=== PATIENT | female | born 1960 | race Caucasian/White ===

== ENCOUNTER → 2018-02-01 09:03 | Outpatient (CLI) | payer BC ==
[2018-02-01 10:16] LABS: BASOPHILS 0.2 % (0-2); EOSINOPHILS 1.4 % (0-7); HEMATOCRIT 35.2 % (36.0-48.0); HEMOGLOBIN 12.2 g/dL (12-16); IMMATURE GRANULOCYTES 0.2 % (0-5); LYMPHOCYTES 26.8 % (15-50); MCH 36.3 pg (26.0-34.0); MCHC 34.7 g/dL (31.0-37.0); MCV 104.8 fL (80.0-100.0); MEAN PLATELET VOLUME 9.9 fL (7.4-10.4); MONOCYTES 8.1 % (2-11); NEUTROPHILS 63.3 % (40-80); PLATELET COUNT 251 10x3/uL (130-400); RBC 3.36 10x6/uL (4.00-5.40); RDW 17.2 % (11.5-14.5); WBC 4.3 10x3/uL (4.8-10.8)
[2018-02-01 10:24] LABS: INR 0.98 (0.85-1.17); PROTIME 12.6 SECONDS (11.6-15.0)
[2018-02-01 10:29] LABS: BILIRUBIN - DIRECT 0.33 mg/dL (0.00-0.30); BILIRUBIN - INDIRECT 0.67 mg/dL (0.00-1.00); PROTEIN - SERUM 6.3 g/dL (6.4-8.2)
[2018-02-02 08:22] LABS: HEPATITIS C ANTIBODY <0.1 (0.0-0.9)
== END | disposition home or self-care (01) ==
LOC: D.LAB 09:03 → D.US 10:00
PROVIDERS: Internal Medicine Gastroenterology
DX: R10.9 Unspecified abdominal pain (principal); R11.0 Nausea; R74.8 Abnormal levels of other serum enzymes

== ENCOUNTER → 2018-02-18 14:59 | Outpatient (CLI) | payer BC | END | disposition home or self-care (01) | LOC: D.CT 14:59 | DX: R56.9 Unspecified convulsions (principal) ==

== ENCOUNTER → 2019-09-26 13:23 | Outpatient (CLI) | payer BC | END | disposition home or self-care (01) | LOC: D.US 13:23 | PROVIDERS: ATTEND Specialist | DX: M79.605 Pain in left leg (principal) ==

== ENCOUNTER 2021-05-08 12:46 | Inpatient (IN) | payer BC ==
[~2021-05-08] VITALS: Ht 157.5 cm; Wt 90.7 kg
--- NOTE | 2021-05-08 13:00 | NUR ---
RECIEVED TO ROOM 1119I.ORIENTED TO SURROUNDINGS.CL IN REACH.
[2021-05-08] MEDS ORDERED: VENTOLIN HFA [SP8 GM INH (17:18)
[2021-05-08] MEDS ORDERED: VITAMIN B-121000 MCG PO (17:18)
[2021-05-08] MEDS ORDERED: FUROSEMIDE20 MG PO (17:19)
[2021-05-08] MEDS ORDERED: NEURONTIN 300300 MG PO (17:21)
[2021-05-08] MEDS ORDERED: HYDRALAZINE HCL25 MG PO (17:22)
[2021-05-08] MEDS ORDERED: VISTARIL25 MG PO (17:23)
[2021-05-08] MEDS ORDERED: KEPPRA500 MG PO (17:24)
[2021-05-08] MEDS ORDERED: COZAAR100 MG PO (17:24)
[2021-05-08] MEDS ORDERED: MULTIGEN FOLIC1 EACH PO (17:25)
[2021-05-08] MEDS ORDERED: VITAMIN B-1100 M1 PO (17:25)
--- NOTE | 2021-05-08 19:58 | NUR ---
AWAKE AND ALERT. RESTING IN BED WITH RESPIRATIONS UNLABORED. USES CANE FOR AMBULATION. NO DISTRESS NOTED. CALL LIGHT IN REACH.
[2021-05-08 20:18] VITALS: BP 125/90
[2021-05-08 22:43] VITALS: BP 125/90; BMI 36.6
--- NOTE | 2021-05-09 05:04 | NUR ---
QUIET HOURS. RESTING IN BED WITH RESPIRATIONS UNLABORED. NO ACUTE CHANGES IN CONDITION THIS SHIFT. RESTING IN BED WITH NO DISTRESS NOTED. CALL LIGHT IN REACH.
[2021-05-09 06:32] LABS: CALC OSMOLALITY 280 mosm/kg (275-300); CALCIUM 8.7 mg/dL (8.5-10.1); CARBON DIOXIDE 31.8 mmol/L (21.0-32.0); CHLORIDE - SERUM 104 mmol/L (98-107); CREATININE - SERUM 0.7 mg/dL (0.6-1.3); GLUCOSE 103 mg/dL (74-106); POTASSIUM - SERUM 4.2 mmol/L (3.5-5.1); SODIUM 140 mmol/L (136-145); UREA NITROGEN 19 mg/dL (7-18); eGFR NON AFRICAN AMERICAN 90 mL/min (90-120)
[2021-05-09 06:35] LABS: HEMATOCRIT 29.2 % (36.0-48.0); HEMOGLOBIN 9.8 g/dL (12-16); MCH 36.8 pg (26.0-34.0); MCHC 33.6 g/dL (31.0-37.0); MCV 109.7 fL (80.0-100.0); MEAN PLATELET VOLUME 7.7 fL (7.4-10.4); RBC 2.66 10x6/uL (4.00-5.40); RDW 20.4 % (11.5-14.5); WBC 2.1 10x3/uL (4.8-10.8)
[2021-05-09 06:45] LABS: PLATELET COUNT 177 10x3/uL (130-400)
[2021-05-09 08:02] VITALS: BP 138/118
[2021-05-09 09:43] LABS: ANISOCYTOSIS OCC; EOSINOPHILS 4 % (0-7); LYMPHOCYTES 38 % (15-50); MONOCYTES 8 % (2-11); NEUTROPHILS 48 % (40-80); PLATELET ESTIMATE NORMAL
--- NOTE | 2021-05-09 13:52 | NUR ---
RESTING QUIETLY IN BED. HAS BEEN UP IN ROOM MOVING AROUND USING HER CANE. DENIES INCREASED PAIN. STILL HAS SOME BRUISING FROM FALLS. ON RT SIDE OF FORHEAD IS A HEALING BRUISE. CALL LIGHT IN REACH
[2021-05-09 14:32] VITALS: Ht 157.5 cm; Wt 90.7 kg
--- NOTE | 2021-05-09 19:00 | NUR ---
RECEIVED SHIFT REPORT FROM MARY SOLORZANO RN, INFORMED PT THAT I WILL BE BACK SHORTLY, PT VERBALIZES UNDERSTANDING, DENIES NEEDS AT THIS TIME
--- NOTE | 2021-05-09 20:35 | NUR ---
PT AWAKE, PT REQUESTS TYLENOL IF DUE, INFORMED PT THAT I WILL CHECK ON IT AND BRING IT IN WITH 9PM MEDS, PT VERBALIZES UNDERSTANDING, DENIES FURTHER NEEDS
--- NOTE | 2021-05-09 21:59 | NUR ---
ASSESSMENT PER FLOW SHEET, VS OBTAINED PER MACHINE HEEL SEAT FITTER, PT REPORTS FLATUS, BM TODAY AND VOIDING WITH NO DIFFICULTY, INFORMED PT THAT I WILL BRING IN TYLENOL AROUND 10:30 PM, PT VERBALIZES UNDERSTANDING, DENIES FURTHER NEEDS
[2021-05-09 22:08] VITALS: BP 110/90
--- NOTE | 2021-05-09 22:30 | NUR ---
ADM TYLENOL PER MD ORDERS, SEE EMAR, PT REQUESTED AND SERVED SNACK, DENIES FURTHER NEEDS
--- NOTE | 2021-05-09 23:10 | NUR ---
PT CABIN SERVICE AGENT LIGHT, PT C/O "BEING ITCHY", ADM VISTARIL PER MD ORDERS, SEE EMAR, PT STATES "I TAKE THAT AT HOME, THAT IS WHAT MY DOCTOR USUALLY PRESCIBES", PT DENIES FURTHER NEEDS
--- NOTE | 2021-05-10 | NUR ---
PT RESTING WITH EYES CLOSED, RESP QUIET, NO DISTRESS NOTED, LEFT UNDISTURBED AT THIS TIME, BED IN LOW POSITION, SIDE RAILS X 2, CALL LIGHT IN REACH
[2021-05-10 05:37] VITALS: BP 120/96
--- NOTE | 2021-05-10 05:37 | NUR ---
PT RESTING WITH EYES CLOSED, AROUSES TO SOFT VERBAL STIMULATION, OBTAINED BP, ADM 0600 MEDS PER MD ORDERS, SEE EMAR, PT REQUESTED AND SERVED DIET LEMON [place] & [place] AND VLAD CRACKERS, DENIES FURTHER NEEDS, BED IN LOW POSITION SIDE RAILS X 2, CALL LIGHT IN REACH
[2021-05-10 07:12] LABS: BASOPHILS 0.5 % (0-2); EOSINOPHILS 1.5 % (0-7); HEMATOCRIT 26.8 % (36.0-48.0); HEMOGLOBIN 9.1 g/dL (12-16); LYMPHOCYTES 43.7 % (15-50); MCH 36.5 pg (26.0-34.0); MCHC 34.1 g/dL (31.0-37.0); MEAN PLATELET VOLUME 7.5 fL (7.4-10.4); MONOCYTES 18.6 % (2-11); NEUTROPHILS 35.7 % (40-80); PLATELET COUNT 194 10x3/uL (130-400); RDW 19.9 % (11.5-14.5); WBC 2.3 10x3/uL (4.8-10.8)
[2021-05-10 07:18] LABS: CALC OSMOLALITY 279 mosm/kg (275-300); CALCIUM 8.8 mg/dL (8.5-10.1); CARBON DIOXIDE 28.5 mmol/L (21.0-32.0); CHLORIDE - SERUM 105 mmol/L (98-107); CREATININE - SERUM 0.8 mg/dL (0.6-1.3); GLUCOSE 93 mg/dL (74-106); SODIUM 139 mmol/L (136-145); UREA NITROGEN 19 mg/dL (7-18); eGFR NON AFRICAN AMERICAN 77 mL/min (90-120)
[2021-05-10 07:29] LABS: MCV 106.9 fL (80.0-100.0)
[2021-05-10 08:28] VITALS: BP 99/72
--- NOTE | 2021-05-10 15:08 | NUR ---
RESTING QUIETLY IN BED. STILL HAS A POOR APPETITE AND C/O SOB AT TIMES. WEARS OXYGEN 3LNC. DENIES PAIN. IS WEAK AND TIRES EASILY. CALL LIGHT IN REACH
--- NOTE | 2021-05-10 19:44 | NUR ---
PATIENT ALERT/ORIENT. PRN ZOFRAN GIVEN PER PATIENT REQUEST FOR NAUSEA. PATIENT SITTING UP ON THE SIDE OF HER BED. CALL LIGHT WITH REACH. VOICES NO NEEDS AT THIS TIME. WILL CONTINUE WITH PLAN OF CARE
[2021-05-10 22:07] VITALS: BP 104/60
--- NOTE | 2021-05-10 22:59 | NUR ---
PATIENT LYING IN BED WITH EYES CLOSED. T.V. ON. RESPIRATIONS EASY. CALL LIGHT WITHIN REACH
--- NOTE | 2021-05-11 02:12 | NUR ---
SITTING UP IN BED WITH EYES CLOSED. CALL LIGHT WITHIN REACH
--- NOTE | 2021-05-11 06:21 | NUR ---
BP 175/55.
[2021-05-11 07:00] VITALS: BP 179/120
--- NOTE | 2021-05-11 08:00 | NUR ---
PLEASANT.SHIFT ASSMT COMPLETED.
--- NOTE | 2021-05-11 16:00 | NUR ---
NAUSEA X1 TODAY,WILL CONTINUE TO MONITOR.
[2021-05-11 19:00] VITALS: BP 144/104
--- NOTE | 2021-05-11 19:15 | NUR ---
PT AWAKE, PT WATCHING TV, BEDSIDE SHIFT REPORT DONE, INFORMED PT THAT I WILL BE BACK SHORTLY TO DO ASSESSMENT, PT VERBALIZES UNDERSTANIDNG, REQUESTS VISTARIL AT BEDTIME, PT DENIES FURTHER NEEDS
--- NOTE | 2021-05-11 21:18 | NUR ---
ASSESSMENT PER FLOW SHEET, VS OBTAINED PER BANKING OFFICER, ADM 2100 MEDS WITH PAIN MED AND VISTARIL, SEE EMAR, PT REQUESTED AND SERVED SNACK, DENIES FURTHER NEEDS
--- NOTE | 2021-05-11 22:30 | NUR ---
PT AWAKE, WATCHING TV, DENIES NEEDS A THIS TIME
--- NOTE | 2021-05-12 00:28 | NUR ---
PT AWAKE, PT REQUESTED AND SERVED VANILLA ICE CREAM, DENIES FURTHER NEEDS
--- NOTE | 2021-05-12 02:37 | NUR ---
LYING IN BED WITH EYES CLOSED. CALL LIGHT WITHIN REACH
[2021-05-12 07:00] VITALS: BP 142/118
[2021-05-12 19:00] VITALS: BP 137/113
--- NOTE | 2021-05-12 20:08 | NUR ---
PATIENT IS ALERT/ORIENT. SITTING UP IN BED TALKING ON CELL PHONE. CALL LIGHT WITHIN REACH. VOICES NO NEES. WILL CONTINUE WITH PLAN OF CARE
--- NOTE | 2021-05-13 02:32 | NUR ---
PATIENT RESTING WELL. EYES CLOSED. RESPIRATIONS EASY. CALL LIGHT WITHIN REACH
--- NOTE | 2021-05-13 03:13 | NUR ---
I have reviewed this patient and I concur with the Shift Assessment completed by the Licensed Practical Nurse today this shift.
[2021-05-13 06:28] LABS: BASOPHILS 0.9 % (0-2); EOSINOPHILS 1.1 % (0-7); HEMOGLOBIN 10.7 g/dL (12-16); LYMPHOCYTES 40.4 % (15-50); MCH 36.2 pg (26.0-34.0); MCHC 33.4 g/dL (31.0-37.0); MCV 108.6 fL (80.0-100.0); MEAN PLATELET VOLUME 7.2 fL (7.4-10.4); MONOCYTES 15.3 % (2-11); NEUTROPHILS 42.3 % (40-80); RBC 2.95 10x6/uL (4.00-5.40); RDW 18.6 % (11.5-14.5); WBC 3.1 10x3/uL (4.8-10.8)
[2021-05-13 06:40] LABS: PLATELET COUNT 245 10x3/uL (130-400)
[2021-05-13 06:57] LABS: ANION GAP 8.6 mmol/L (8-16); CALCIUM 8.9 mg/dL (8.5-10.1); CARBON DIOXIDE 32.6 mmol/L (21.0-32.0); CREATININE - SERUM 0.9 mg/dL (0.6-1.3); POTASSIUM - SERUM 4.2 mmol/L (3.5-5.1)
[2021-05-13 08:11] VITALS: BP 155/106
--- NOTE | 2021-05-13 16:24 | NUR ---
RESTING QUIETLY IN BED. KEEPS HER CURTAIN CLOSED AROUND HER BED. USES HER CANE FOR AMBULATION ASST. CALL LIGHT IN REACH
--- NOTE | 2021-05-13 20:13 | NUR ---
AWAKE AND ALERT. RESTING IN BED WITH RESPIRATIONS UNLABORED. STATED SHE HAD VOMITING EARLIER BUT FELT A LITTLE BETTER. REQUESTED ICE CREAM. ICE CREAM PROVIDED. NO DISTRESS NOTED. CALL LIGHT IN REACH.
[2021-05-13 20:40] VITALS: BP 110/89
--- NOTE | 2021-05-14 00:15 | NUR ---
MEDICATED FOR C/O ITCHING. SEE MAR. RESPIRATIONS UNLABORED.
--- NOTE | 2021-05-14 05:08 | NUR ---
QUIET HOURS. NO ACUTE CHANGES IN CONDITION THIS SHIFT. RESTING IN BED WITH NO DISTRESS NOTED.
[2021-05-14 08:08] VITALS: BP 125/106
--- NOTE | 2021-05-14 19:30 | NUR ---
PT SITTING ON SIDE OF BED, NO NEEDS VOICED AT THIS TIME
--- NOTE | 2021-05-14 19:50 | RHP ---
PATIENT: IFTIKHAR CAAL MEDICAL RECORD: [id number] ACCOUNT: [id number] LOCATION:[place] [address] : 60 ADMISSION DATE: 05/08/21 REHABILITATION HISTORY AND PHYSICAL EXAMINATION POST ADMISSION PHYSICIAN EXAMINATION ADMITTING DIAGNOSES: Pancytopenia secondary to alcohol and atypical chest pain. HISTORY OF PRESENT ILLNESS: The patient presented to the ED at [facility] on 05/01/2021 with chest pain in the upper left and sharp, increased with breathing, tender to touch, nonradiating. Her only complaint was lower extremity edema. She reports to the staff that she had been to her back doctor earlier that day and had got an epidural without incident. Her principal problem list included pancytopenia, atypical chest pain, alcohol intoxication. She drinks a bottle of vodka every day. She is at risk for seizures, risk for alcohol withdrawal. Hematology was consulted on 05/02/2021 and was noted to have a marked decrease in the number and composition of neutrophils. The patient did receive a banana bag and Librium throughout her stay prior to this hospitalization. She was functioning independently at home where she resides alone. Reportedly, uses a cane only when she feels like she has to. She apparently seems to be wearing flip flops and caught her toe on a brick she says and face planted. She has got some bruising to her right temporal region that is healing. Therapy reports an underlying impairments impact the patient's safety and independence with ADLs, functional mobility in extent of which the patient is able to participate in therapy. She has got balance deficits, decreased activity tolerance, decreased strength, history of falls at home, medical complexity for risk of pain and falls. The patient requires moderate verbal cues. They are using safety techniques and postural techniques with her ADLs and functional transfers. She will hopefully discharge home with a more safety awareness and more endurance. COMORBIDITIES: Include atypical chest pain, fungal groin infection, B12 deficiency, leukopenia, thrombocytopenia, vitamin D deficiency. PAST MEDICAL HISTORY: Significant for seizures, dependence on alcohol, chronic venous stasis, history of Covid, bilateral back pain, CVA in the past, depression, degenerative joint disease, neuropathy. PAST SURGICAL HISTORY: Includes back surgery. She has had a colectomy, gastric restriction surgery, knee surgery and T&A. ALLERGIES: ADHESIVE TAPE. MEDICATIONS: Nystatin powder, she is on thiamine 100 mg daily, multivitamin daily, she is on Cozaar 100 mg daily, she is on B12 1000 mcg daily, hydralazine 25 mg every 8 hours, furosemide 20 mg b.i.d., Zofran 4 mg every 4 hours, Tylenol 650 every 4 hours, Keppra 500 mg b.i.d., Neurontin 300 mg at bedtime, Vistaril 25 mg t.i.d. and Ventolin updrafts. HABITS: Does have history of alcohol and tobacco use. FAMILY HISTORY: Noncontributory. SOCIAL HISTORY: The patient hopes to return back home and get back to her prior level of functioning. HISTORY AND PHYSICAL [id number] IFTIKHAR CAAL REVIEW OF SYSTEMS: GENERAL: Does complain of weakness and fatigue. HEENT: Denies cold, cough or congestion. CARDIOVASCULAR: Denies any chest pain. PHYSICAL EXAMINATION: VITAL SIGNS: Stable, afebrile. GENERAL: Elderly female, in no acute distress upon exam. HEENT: Normocephalic, atraumatic. Mucosa moist. She does have a healing area to her forehead. NECK: Supple with no lymphadenopathy. LUNGS: Clear at this time. No wheezing or rales. HEART: Regular rate and rhythm. No murmurs, rubs or gallops. ABDOMEN: Soft, benign, nondistended. Positive bowel sounds times 4. EXTREMITIES: No clubbing, cyanosis. She does have multiple bruising from falls. NEUROLOGIC: She is a little bit slow to mentate and has diffuse weakness. LABORATORY AND DATA: White count is 2.1, H&H of 9.8 and 29.2, and platelet count is noted to be 177. Sodium is 140, potassium 4.2, BUN and creatinine of 19 and 0.7 and blood sugar is noted to be 103. ASSESSMENT: This is a 60-year-old female patient admitted to rehab with a working diagnosis of pancytopenia complicated by alcohol abuse. The patient has potential to make improvement. We instituted the formal multidisciplinary therapies including, not limited to physical, occupational, respiratory, speech, nutritional services, prosthetics and orthotics. Given her complex medical condition and risk of further medical complications, rehabilitation services cannot be provided at a low level of care such as nursing home facility. PLAN: 1. [facility] to include the following disciplines; A. Physical therapy to improve gait, all transfer skills and bed mobility to a modified independent level. B. Occupational therapy to improve activities of daily living. C. Case management to help with discharge planning and placement options. D. Nutrition to assist with nutritional needs. E. Rehabilitation nursing to assist in monitoring the patient's underlying medical condition and to assist with any type of bowel or bladder management. 2. The patient's current medication and Medicare will be continued. 3. Will be placed on standard fall precautions. 4. The patient's estimated length of stay is approximately 7-10 days. 5. Discuss this with patient care team staff meeting this week. TRANSINT:[id number] Voice Confirmation ID: [id number] DOCUMENT ID: [id number] ALISIA notes whether there has been none or any medical/functional change since admission: - No change since preadmission screen. ALISIA attests patient continues to be appropriate for IRF: HISTORY AND PHYSICAL [id number] IFTIKHAR CAAL - Continues to be appropriate. ANNE MARS MD at 1950 CC: [id number] DICTATION DATE: 05/09/21 0934 COMMUNICATION [facility]ENTER COORDINATOR: 05/09/21 1033 ADM IN [facility] [address] [place] [id number]
[2021-05-14 19:56] VITALS: BP 100/66
--- NOTE | 2021-05-14 21:46 | NUR ---
ASSESSMENT PER FLOW SHEET, VS OBTAINED PER SPLUNK DASHBOARD DEVELOPER, PT REPORTS FLATUS, BM TODAY AND VOIDING WITH NO DIFFICULTY, PT C/O PAIN AND SLIGHT NAUSEA, WILL ADN PAIN MED AND ZOFRAN, ADM 2100 MEDS PER MD ORDERS, SEE EMAR WITH FRESH H20, PT ALSO REQUESTS DIET LEMON [place] AND VLAD CRACKERS
--- NOTE | 2021-05-14 22:13 | NUR ---
ADM PAIN MED AND ZOFRAN PO PER MD ORDERS, SEE EMAR, SERVED DIET LEMON [place] AND VLAD SHEIKH, DENIES FURTHER NEEDS AT THIS TIME
[2021-05-15 00:29] VITALS: BP 121/93
--- NOTE | 2021-05-15 00:29 | NUR ---
PT RESTING WITH EYES CLOSED, AROUSES TO SOFT VERBAL STIMULATION, VS OBTAINED PER WIND TURBINE SERVICE TECHNICIAN, ADM VISTARIL PER MD ORDERS, SEE EMAR, REQUESTED AND SERVED DIET LEMON [place], ICE CREAM, AND REGULAR CRACKERS, DENIES FURTHER NEEDS
[2021-05-15 06:20] VITALS: BP 120/89
--- NOTE | 2021-05-15 06:20 | NUR ---
PT AWAKE, VS OBTAINED, ADM 0600 MEDS PER MD ORDERS, SEE EMAR, WITH FRESH H20, PT DENIES NEEDS AT THIS TIME, BED IN LOW POSITION, SIDE RAILS X 2, CALL LIGHT IN REACH
[2021-05-15 07:00] VITALS: BP 192/141
[2021-05-15 08:30] LABS: EOSINOPHILS 1.3 % (0-7); HEMATOCRIT 32.1 % (36.0-48.0); HEMOGLOBIN 10.9 g/dL (12-16); LYMPHOCYTES 37.1 % (15-50); MCH 36.8 pg (26.0-34.0); MCHC 33.9 g/dL (31.0-37.0); MCV 108.5 fL (80.0-100.0); MEAN PLATELET VOLUME 7.3 fL (7.4-10.4); MONOCYTES 10.5 % (2-11); NEUTROPHILS 50.1 % (40-80); PLATELET COUNT 238 10x3/uL (130-400); RBC 2.96 10x6/uL (4.00-5.40); RDW 18.6 % (11.5-14.5); WBC 3.3 10x3/uL (4.8-10.8)
[2021-05-15 08:39] LABS: CALC OSMOLALITY 275 mosm/kg (275-300); CALCIUM 8.6 mg/dL (8.5-10.1); CARBON DIOXIDE 26.3 mmol/L (21.0-32.0); CHLORIDE - SERUM 102 mmol/L (98-107); CREATININE - SERUM 0.7 mg/dL (0.6-1.3); GLUCOSE 80 mg/dL (74-106); POTASSIUM - SERUM 4.4 mmol/L (3.5-5.1); SODIUM 137 mmol/L (136-145); UREA NITROGEN 20 mg/dL (7-18); eGFR NON AFRICAN AMERICAN 90 mL/min (90-120)
--- NOTE | 2021-05-15 09:25 | NUR ---
PATIENT DISCHARGING HOME WITH FAMILY TODAY. AT THIS TIME, PATIENT HAS DECLINED, HOME HEALTH AND ANY DME NEEDS.PATIENT HAS AN APPOINTMENT WITH HER PCP DR. ALEX DEL ANGEL AT 10:00 AM TODAY. QUINTEN SIGNED, IMM SERVED AND EXPLAINED ONE COPY GIVEN TO PATIENT AND ONE FILED IN CHART. DC INSTRUCTIONS FAXED TO PCP, AVANI , AUTH. # [id number] WITH FAX CONFORMATIONS RECIEVED AND REVIEWED WITH PATIENT.
--- NOTE | 2021-05-15 14:15 | NUR ---
Nutrition Re-Assessment Diet: Cardiac PO intake: ~42% average x last 3 meals, patient was OOR at time of RD visit Last BM: 05/13/21 Wt: 200# (05/09/21) Meds noted: lasix Labs reviewed Estimated nutrition needs: 1500-1800kcal (25-30kcal/kg Adj), 60-72gms protein (1-1.2gms/kg), 1800-2275mL fluid (or per MD) *Adjusted body weight = 60.2kg Nutrition diagnosis: Inadequate energy intake r/t inadequate oral intake AEB PO intake <65% average. Nutrition goals: -PO intake will increase to =/>75% meals -Meet fluid needs without fluid overload -Dry weight stable [facility] Recommendations/Interventions: -Recommend continue Cardiac diet. Will continue to honor food preferences within diet restrictions. -Will add Ensure with meals. -RD will follow-up within 5-7 days.
== END 2021-05-15 09:45 | disposition home or self-care (01) | DRG 810 ==
LOC: D.REHAB 12:46
PROVIDERS: ADMIT Emergency Medicine; ATTEND Emergency Medicine
DX: D61.818 Other pancytopenia (principal); R07.9 Chest pain, unspecified; E53.8 Deficiency of other specified B group vitamins; E55.9 Vitamin D deficiency, unspecified; D69.6 Thrombocytopenia, unspecified; D72.819 Decreased white blood cell count, unspecified; F10.10 Alcohol abuse, uncomplicated; D64.9 Anemia, unspecified; G89.29 Other chronic pain; M54.9 Dorsalgia, unspecified; F32.9 Major depressive disorder, single episode, unspecified; R42 Dizziness and giddiness; M19.90 Unspecified osteoarthritis, unspecified site; R60.9 Edema, unspecified; R53.83 Other fatigue; G62.9 Polyneuropathy, unspecified; B35.6 Tinea cruris